=== PATIENT | male | born 1950 | race Caucasian/White ===

== ENCOUNTER → 2023-07-08 08:33 | Outpatient (REF) | payer OTHER, SELFPAY | LOC: HWRAD 08:33 | PROVIDERS: ATTENDING PHYSICIAN Nurse Practitioner Acute Care; FAMILY PHYSICIAN Internal Medicine | DX: Z95.828 Presence of other vascular implants and grafts (principal); I35.1 Nonrheumatic aortic (valve) insufficiency; I48.91 Unspecified atrial fibrillation | CPT/HCPCS: 71275; Q9967 ==

== ENCOUNTER → 2023-07-19 07:04 | Outpatient (REF) | payer OTHER, SELFPAY | LOC: HWRCS 07:04 | PROVIDERS: ATTENDING PHYSICIAN Nurse Practitioner Acute Care; FAMILY PHYSICIAN Internal Medicine | DX: I35.1 Nonrheumatic aortic (valve) insufficiency (principal); I48.91 Unspecified atrial fibrillation; Z95.828 Presence of other vascular implants and grafts | CPT/HCPCS: 93306 ==

== ENCOUNTER → 2024-05-26 13:54 | Outpatient (REF) | payer OTHER, SELFPAY | LOC: HWRCS 13:54 | PROVIDERS: ATTENDING PHYSICIAN Internal Medicine Cardiovascular Disease; FAMILY PHYSICIAN Internal Medicine | DX: I35.1 Nonrheumatic aortic (valve) insufficiency (principal) | CPT/HCPCS: 93306 ==

== ENCOUNTER 2025-01-08 18:51 | Observation (INO) | payer OTHER, SELFPAY ==
[2025-01-08 16:23] VITALS: BP 171/88
[2025-01-08 16:36] VITALS: BMI 29.3
[2025-01-08 16:36] LABS: Glucose - Point of Care 105 mg/dl (70-99)
[2025-01-08 16:56] VITALS: BP 143/78
--- NOTE | 2025-01-08 17:05 | ED.CVA ---
History of Present Illness
General
Chief Complaint: CVA/TIA Symptoms
Source: patient and family
Time Seen by Provider: 01/08/25 16:32
Onset of Stroke Symptoms
Onset of symptoms known: Yes
Date of onset of symptoms: 01/08/25
History of Present Illness
History of Present Illness:
Note:
CHIEF COMPLAINT(S)
Possible stroke.
HISTORY OF PRESENT ILLNESS
The patient, a male with a history of atrial fibrillation, presented with concerns of having a stroke. He reported an inability to recall things, citing an example where he forgot about retrieving his glasses. This episode followed a visit to the
dentist approximately 45 minutes prior, where he had received a local anesthetic on the right side. Post-procedure, the patient exhibited memory lapses, forgetting recent activities and locations. Family members reported he repeatedly failed to
remember statements he had just made, and he appeared disoriented. Upon arrival at the medical facility, the patient demonstrated improved lucidity but still exhibited memory difficulties and expressed concerns about the possibility of a stroke.
PAST MEDICAL AND SURGICAL HISTORY
History of atrial fibrillation and aortic surgery.
CHRONIC MEDICAL CONDITIONS SIGNIFICANTLY AFFECTING CARE
Atrial fibrillation.
MEDICATIONS
1. Carvedilol (Coreg)
2. A statin
3. Apixaban (Eliquis) - For atrial fibrillation.
PHYSICAL EXAM
General: Alert, no acute distress.
Skin: Warm, dry.
Head: Normocephalic, atraumatic.
Neck: Supple, trachea midline.
Eyes, ears, nose, mouth, and throat: Oral mucosa moist.
Cardiovascular: Normal peripheral perfusion, no edema.
Respiratory: Respirations are non-labored.
Gastrointestinal: Abdomen nondistended.
Back: Normal range of motion, normal alignment.
Musculoskeletal: Normal range of motion, normal strength.
Neurological: Alert and oriented to person, place, time, and situation. Speech is clear. Cranial nerves intact, equal bilateral. No pronator drift, normal strength in bilateral upper and lower extremities.
Psychiatric: Cooperative, appropriate mood and affect.
PLAN
1. Obtain a head CT scan to rule out a stroke.
2. Conduct lab work to assess for other possible causes.
3. Monitor for potential systemic effects of lidocaine from dental anesthesia.
4. Continuously evaluate neurological status.
DIFFERENTIAL DIAGNOSIS
The Differential Diagnosis includes, in no particular order and is not limited to:
1. Transient ischemic attack
2. Cerebrovascular accident (stroke)
3. Amnestic syndrome
4. Effects of dental anesthesia
5. Systemic lidocaine toxicity
6. Medication side effects
7. Atrial fibrillation-related embolism
8. Post-procedural delirium
9. Hypertensive encephalopathy
10. Transient global amnesia
Disposition:
SUMMARY OF ENCOUNTER
The patient was seen in the emergency department with concerns of experiencing a stroke. He exhibited symptoms suggestive of a possible stroke, but upon re-evaluation, his symptoms resolved completely. Neurology evaluated the patient at bedside
after imaging. Given that the symptoms had resolved and considering the patient was on apixaban (Eliquis), TNK (tenecteplase) was not indicated for management. Vital signs recorded included blood pressure of 143/78 mmHg and a heart rate of 62. His
blood glucose level was noted at 105 mg/dL. He was admitted for further evaluation and workup.
DISPOSITION
Admit
ASSESSMENT
Possible transient ischemic attack (TIA) or resolved stroke symptoms, requiring further evaluation and monitoring.
MANAGEMENT OF THE PATIENTS CARE WAS DISCUSSED WITH
Neurology team at bedside after imaging.
INDEPENDENT REVIEW OF LABS AND INTERPRETATION OF TESTS
My independent review of glucose is 105 mg/dL.
MEDICAL DECISION MAKING
- Number and Complexity of Problems Addressed: Chronic conditions affecting care include atrial fibrillation. Differential diagnosis considered includes transient ischemic attack, cerebrovascular accident (stroke), amnestic syndrome, effects of
dental anesthesia, systemic lidocaine toxicity, medication side effects, atrial fibrillation-related embolism, post-procedural delirium, hypertensive encephalopathy, transient global amnesia.
- Data:
Category 1: Reviewed blood glucose level.
Category 2: Neurology consulted and evaluated patient directly at bedside.
- Risk: The decision to admit for further evaluation was made due to the resolved symptoms of possible stroke, history of atrial fibrillation, and the need for further workup to rule out any life-threatening processes. Prescription medication
management was considered, but TNK was not administered due to contraindications (resolved symptoms and ongoing apixaban).
DIAGNOSIS
Transient ischemic attack (TIA) - ICD-10 Code G45.9. Atrial fibrillation - ICD-10 Code I48.91.
Past History
Past History
ED Past Medical History: Arrthythmia (Atrial fibrillation), CVA (Mild with Visual loss that resolved), HTN, Hypercholesterolemia and Other (Ascending aortic aneurysm)
ED Past Surgical History: Other (Ascending aortic aneurysm repair)
Social History
Tobacco: Former smoker
Alcohol: None
Personal:
Living: with family
Phy Exam
Physical Exam
Physical Exam:
.
Course
Orders/Labs/Results
Orders:
Orders
01/08/25 Dinner
Regular
At Your Request: Limited Participation
Does patient need a safe tray?: Yes
01/08/25 16:28
CT HEAD STROKE ALERT W/o Cont Urgent
Comment:
Reason For Exam: confusion
CT HEAD/NECK ANG STROKE ALERT Urgent
Comment:
Reason For Exam: confusion
01/08/25 16:32
CT BRAIN PERF STROKE ALERT Urgent
Comment:
Reason For Exam: speech changes
01/08/25 16:50
Electrocardiogram (*1) Stat
Reason for Study: Other
Other Reason for Exam: neuro symptoms
Cardiac Monitoring- Treatment ONCE
EKG- Treatment ONCE
01/08/25 16:58
Complete Blood Count/With Diff Urgent
Comprehensive Metabolic Panel Urgent
Magnesium Urgent
PT/INR [Prothrombin Time] Urgent
PTT Urgent
Troponin I Urgent
01/08/25 17:53
Admit/Transfer Patient As Directed
Co-Sign Provider:
Level of Care: Observation services
Assign to:: Telemetry
Physician / Group: nicol green
Diagnosis: amnesia concern for tia/va/seizure
Reason for Telemetry: CVA/TIA
Date to Stop Telemetry: 01/11/25
Time to Stop Telemetry: 11:00
Reason for Hospitalization: amnesia concern for tia/va/seizure
Code Status As Directed
Resuscitation Status: Full Code
01/08/25 17:54
PRN Pain Medication Management As Directed
May give lesser potent ordered pain med per pt: Yes
preference::
Protocol:: Medication orders for pain may be administered in a
manner that supports deferring to patient preference
when the pt is:
- Requesting an ordered lesser potent pain medication.
Least to most potent pain medications are defined
as: acetaminophen < NSAID < tramadol < opioids
(morphine, oxycodone, hydromorphone).
- Requesting a lesser dose of the same medication IF
ORDERED.
- Requesting a less intrusive route of administration
if both routes are prescribed by the provider (PO <
IV).
01/08/25 20:43
Acetaminophen [Tylenol] 650 mg PO Q4HPRN PRN
01/08/25 20:43
VTE Contraindication Routine
VTE Mechanical Device Contraindication: Medical Contraindication
Pharmocologic Contraindication: Medical Contraindication
Comment: Patient on Eliquis
EEG Routine Routine
Reason for Exam: memory impairment
Activity As Directed
Activity Level: As Tolerated
Neurological Checks As Directed
Frequency: q4h
Vital Signs As Directed
Frequency: Per unit guidelines
01/09/25 06:00
Cardiovascular Evaluation IN AM
Complete Blood Count/With Diff IN AM
Comprehensive Metabolic Panel IN AM
Hgba1c [Glycohemoglobin (HgbA1c)] IN AM
01/11/25 11:00
DC Protocol for Telemetry ONCE
Abnormal Lab Results
01/08/25 01/08/25
16:34 16:58
Absolute Neuts (auto) 6.9 H 10^3/uL
(1.4-6.5)
Absolute Monos (auto) 0.7 H 10^3/uL
(0.1-0.6)
Lymphocytes % 20.3 L %
(20.5-51.1)
BUN 22 H mg/dl
(9-20)
Glucose 109 H mg/dl
(70-99)
POC Glucose 105 H mg/dl
(70-99)
01/08/25 16:58
01/08/25 16:58
Vital Signs
Initial and Last Documented VS:
Initial Vital Signs
Temp Pulse Resp BP Pulse Ox
98.4 F 65 16 171/88 98
01/08/25 16:23 01/08/25 16:23 01/08/25 16:23 01/08/25 16:23 01/08/25 16:23
Last Documented Vital Signs
Temp Pulse Resp BP Pulse Ox
98.6 F 62 14 143/78 97
01/08/25 16:56 01/08/25 16:56 01/08/25 16:56 01/08/25 16:56 01/08/25 17:06
*Pulse Oximetry
SaO2: 97
Oxygen Mode of Delivery: Room air
Patient hypoxic: no
*Critical Care Note
Total Time (30-74mins, 75-104mins- exclusive of procedures): 35 minutes
ED Attending Note
-
Portions of this chart may have been created with voice recognition software.� Occasional wrong word or��sound alike� substitutions may have occurred due to the inherent limitations of voice recognition software.
Discharge Plan
Departure
Patient Disposition: Admit
Date of Disposition: 01/08/25
Time of Disposition: 17:05
Admit to: Telemetry
Presentation/result/management discussed w/ accepting MD/DO: Hospitalist
Discharge Problem:
TIA (transient ischemic attack)
Interventions
Interventions:
*Risk Screen - Suicide Last Done: 01/08/25 16:56
*General Assessment Last Done: 01/08/25 16:56
*Neglect/Abuse Screening Last Done: 01/08/25 16:56
*ED- Fall Risk Assessment Last Done: 01/08/25 16:56
*ED COVID-19 Vaccine History Last Done: 01/08/25 16:56
*Nursing Disposition Last Done: 01/08/25 20:39
ED- Pulmonary Assessment Last Done: 01/08/25 16:56
ED- Neurological Assessment Last Done: 01/08/25 16:56
ED- Cardiac Assessment Last Done: 01/08/25 16:56
ED Swallowing Screen Last Done: 01/08/25 16:56
Discharge Date and Time
Discharge Date/Time: 01/08/25 20:39
[2025-01-08 17:13] LABS: Hematocrit 44.3 % (39.0-52.0); Hemoglobin 14.6 g/dL (13.0-18.0); Mean Corp Hgb Conc. 33.0 g/dL (33.0-37.0); Mean Corpuscular Volume 86.9 fL (80.0-94.0); Nucleated Red Blood Cells % 0 % (-); Platelet Count 246 10^3/uL (130-400); Red Cell Dist. Width 13.3 % (11.5-14.5)
--- NOTE | 2025-01-08 17:15 | HPS.HSE ---
Addendum entered and electronically signed by Haile Joiner MD 01/08/25 20:29:
This is an addendum to H&P written by Grace Esquivel on 01/08/2025. �Patient seen and examined independent with EMPLOYMENT ADVISOR.
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 �He was unable to
recall things. �This occurred after dental visit when he received local anesthetic on the right side. �He did have some atypical speech. �He appeared disoriented and felt remember statements. �He had some tingling in his mouth but he did have
anesthesia. �No focal neurological symptoms, headache or blurry vision or dizziness. �Symptoms currently resolved.
Vital signs normal.
Labs unremarkable.
CT head showed no evidence of acute intracranial abnormality. �CTA head and neck shows no evidence of high-grade stenosis or large vessel occlusion.
Possible TIA versus CVA vs seizure. �Check MRI brain.� Check EEG. Continue Eliquis. �Neurology consulted.
Original Note:
Family Physician
-
Family Physician:
Chief Complaint
-
Acute memory impairment
History of Present Illness
74-year-old male who reportedly went to his dentist today at 2 PM had deep cleaning/scaling on the right upper and right lower part of his mouth. He did receive Novocain without any difficulty. He had the same procedure last week. Upon returning
home he was home for about 45 minutes when his daughter was attempting to show him pictures of her grandson on her phone. He walked into the kitchen came out with his glasses however he was holding them in his hand looking puzzled per his daughter.
He was asking her why does he have the glasses she reminded him that he went in there to get them to look at his grandson she then started asking him questions of where he was earlier he could not recall his age he cannot recall he went to the
dentist his occupation she reports also on the drive here he kept saying repetitive questions that really did not make any sense. She believes he might of had a little bit of a facial droop however she cannot be definite due to his Novocain
anesthesia on the upper right and lower part of his mouth. He is currently oriented x 3 with no focal deficits. He did have history of TIA with visual field deficit a few weeks after ascending aortic aneurysm repair years ago. He states he
follows with Dr. Joseph cortes from [place].
He has past medical history A-fib Dx 2021, ascending aortic aneurysm repair, 2-3 weeks CVA with prior visual loss right parietal August 2021, HTN, HLD, former smoker
Medical History
Past Medical History
Past Medical History: Reports Other
Additional Past Medical History:
A-fib Dx 2021
ascending aortic aneurysm repair August 2021 [facility]
2-3 weeks after aneurysm repair CVA with prior visual loss right parietal September 2021
HTN
HLD
former smoker
Past Surgical History: Reports Other
Additional Past Surgical History:
ascending aortic aneurysm repair August 2021 [facility]
Tonsillectomy
Social History
Tobacco: Former Smoker
Alcohol: None
Drug: None
Personal:
Living: With Family
Family History
Family History: Not pertinent
Allergies / Home Medications
Allergies reflects when Allergies were last updated in [facility].
Home Medications with original date entered in [facility]
Allergy/Medication List:
Allergies
Allergy/AdvReac Type Severity Reaction Status Date / Time
No Known Allergies Allergy Verified 09/14/21 16:38
Home Medications
apixaban 5 mg tablet (Eliquis) 5 mg PO BID #60 tabs 09/16/21
atorvastatin 40 mg tablet (Lipitor) 40 mg PO HS #30 tabs 09/16/21
famotidine 20 mg tablet (Pepcid) 20 mg PO HS 01/08/25
glucosamine sulf dipot chlr,msm,chond 550 mg-C 30 mg-cruz 1 mg capsule (Glucosamine Chondroitin) 1 cap PO DAILY 01/08/25
ibuprofen 200 mg tablet (Advil) 600 mg PO BID 01/08/25
metoprolol succinate 25 mg tablet,extended release 24 hr 25 mg PO BID Blood pressure 01/08/25
sildenafil 50 mg tablet 50 - 100 mg PO DAILYPRN PRN ed 01/08/25
turmeric 400 mg capsule 400 mg PO DAILY 01/08/25
Review of Systems
-
History Source: Patient and Family (Daughter and at bedside)
A 12 point ROS was completed and negative except as noted: Yes
Constitutional: Denies Fever or Chills
EENT: Reports Other (Memory impairment of earlier today's events); Denies Sore Throat or Runny Nose
Respiratory: Denies Cough or Trouble Breathing
Cardiac: Denies Chest Pain, Diaphoresis or Palpitations
Abdomen/GI: Denies Abdominal Pain, Nausea, Vomiting, Diarrhea, Constipated or Bloody Stools
: Denies Dysuria, Frequency, Flank Pain, Incontinence or Difficulty Voiding
Musculoskeletal: Denies Joint Pain or Edema
Skin: Denies Itching or Rash
Neurological: Denies Dizzy
Endocrine: Reports No Symptoms
Hematologic/Lymphatic: Reports No Symptoms
Psych: Reports Calm
Physical Exam
Vital Signs
Vital Signs
Temp Pulse Resp BP Pulse Ox
98.6 F 62 14 143/78 97
01/08/25 16:56 01/08/25 16:56 01/08/25 16:56 01/08/25 16:56 01/08/25 17:06
Physical Exam
General: Comfortable and Conversant; No Pain, Fever or Chills
HEENT: NormoCephalic, Anicteric, Moist mucous membranes, PERRLA, [place] Conjunctivae, No Ptosis and Neck Nontender
Respiratory: Clear; No Wheezes, Rales or Rhonchi
Cardiac: S1/S2 and Regular Rhythm; No Murmur, Rub, Gallop or Peripheral Edema
Breast: Deferred by me
GI: Soft, Non Distended, Normal Bowel Sounds and No Hepatosplenomegaly
Rectal: Deferred by Provider
Genito-urinary: Deferred by me
Musculoskeletal: No Clubbing, No Cyanosis and No Edema
Skin: Warm and Dry; No Rash
Neuro: AO x 3, No Motor Deficits, Nonfocal/grossly intact, Cranial Nerves Intact and No Sensory Deficits; No Slurred Speech, Facial Droop, Tremors or Sedated
Laboratory Results
-
01/08/25 16:58
Data Reviewed
-
CT Scan: Report Reviewed by me
Lab Data: Labs Reviewed by me
Impression/Plan
-
Impression/plan:
Observation telemetry
#Amnesia concern for seizure
#History of right parietal CVA 09/2021
- Check lipid profile, HgbA1c
- Patient took Eliquis 5 mg this a.m. 01/08/2025 for A-fib
-Continue Eliquis 5 mg twice daily, Lipitor 40 mg at bedtime
- Consult neurology-discussed with Dr. Santana
- EEG
2D echo 05/26/2024: EF 60% normal biventricular size and systolic function without regional wall abnormality, mild to moderate MR, proximal aortic measurement 4.[address] brain perfusion:
Distribution of elevation of Tmax is within both temporal lobes, right greater than left. Extension to the temporal occipital junction, greater on the left compared to the right.
There is also a focal area in the inferior and anterior right frontal lobe. This distribution would be atypical for ischemic stroke.
#Paroxysmal A-fib Dx 2021
- Continue metoprolol succinate 25 mg daily
-Continue Eliquis 5 mg twice daily
#Abdominal aortic aneurysm status post repair August 2021 at [facility]
#HTN
BP 143/78
Continue metoprolol succinate 25 mg daily
DVT prophylaxis
cont eliquis
Full code
[2025-01-08 17:21] LABS: INR 1.08; PT 14.3 Sec (11.4-14.6)
[2025-01-08 17:22] LABS: APTT 33.8 Sec (23.4-35.0)
[2025-01-08 17:25] LABS: ALT (SGPT) 21 U/L (0-50); AST (SGOT) 25 U/L (17-59); Albumin 4.5 g/dl (3.5-5.0); Alkaline Phosphatase 96 U/L (38-126); Blood Urea Nitrogen 22 mg/dl (9-20); Calcium 9.1 mg/dl (8.4-10.2); Carbon Dioxide 26 mmol/L (22-30); Chloride 107 mmol/L (98-107); Estimated Creatinine Clearance 73 ml/min; Glucose 109 mg/dl (70-99); Magnesium 2.0 mg/dl (1.6-2.3); Potassium 4.4 mmol/L (3.5-5.1); Sodium 139 mmol/L (135-145); Total Protein 7.0 g/dl (6.3-8.2); eGFR > 60.00
[2025-01-08 17:35] LABS: Troponin I 0.014 ng/ml
[2025-01-08 20:30] VITALS: BP 142/71; BMI 28.5
[2025-01-08] MEDS: TOPROL XL 25 MG PO (22:27)
[2025-01-08] MEDS: ELIQUIS 5 MG PO (22:28)
[2025-01-08] MEDS: LIPITOR 40 MG PO (22:28)
[2025-01-08] MEDS: PEPCID 20 MG PO (22:28)
[2025-01-08 23:16] VITALS: BP 118/62
[2025-01-09 02:58] VITALS: BP 141/69
[2025-01-09 07:00] VITALS: BP 125/70
[2025-01-09 07:26] LABS: Hematocrit 41.4 % (39.0-52.0); Hemoglobin 13.9 g/dL (13.0-18.0); Mean Corp Hgb Conc. 33.6 g/dL (33.0-37.0); Mean Corpuscular Volume 87.7 fL (80.0-94.0); Nucleated Red Blood Cells % 0 % (-); Platelet Count 235 10^3/uL (130-400); Red Cell Dist. Width 13.4 % (11.5-14.5)
[2025-01-09 07:39] LABS: ALT (SGPT) 19 U/L (0-50); AST (SGOT) 24 U/L (17-59); Albumin 3.9 g/dl (3.5-5.0); Alkaline Phosphatase 92 U/L (38-126); Blood Urea Nitrogen 25 mg/dl (9-20); Calcium 9.3 mg/dl (8.4-10.2); Carbon Dioxide 27 mmol/L (22-30); Chloride 110 mmol/L (98-107); Estimated Creatinine Clearance 81 ml/min; Glucose 87 mg/dl (70-99); HDL Cholesterol 48 mg/dl; LDL Cholesterol, Calculated 71 mg/dl; Potassium 4.8 mmol/L (3.5-5.1); Sodium 141 mmol/L (135-145); Total Protein 6.1 g/dl (6.3-8.2); Very Low Density Lipoprotein 15 mg/dl (0-30); eGFR > 60.00
[2025-01-09] MEDS: TOPROL XL 25 MG PO (08:42)
[2025-01-09] MEDS: ELIQUIS 5 MG PO (08:43)
[2025-01-09 10:33] LABS: Glycohemoglobin (HgbA1c) 5.4 % (4.0-5.6)
--- NOTE | 2025-01-09 10:56 | CM ---
Reviewed chart.Met with pt at bedside. Shea given and form placed on chart. Lives in 3-story home with , daughter, son-in-law- [id number] and grandson. 2 steps at entrance to house. Hx of HH post open heart surgery with [facility]; PT.
No hx of SNF or DME but has SPC availability in the home. Planned MRI for today. confirmed PCP, Rx, insurance and drug coverage.
Plan: Home without needs.
[2025-01-09 11:08] VITALS: BMI 28.5
[2025-01-09 11:18] VITALS: BP 119/61
--- NOTE | 2025-01-09 11:55 | W.PN.HOSP.TC ---
Today's Communication/Plan
-
MRI
EEG
Neuro eval
Lyme testing at patient request
Assessment / Plan
Assessment / Plan
Assessment:
Amnesia episode
Hx of R parietal CVA 2021
- CT head: negative
- CTA: no hemodynamically significant stenosis
- check MRI brain
- check EEG
- Neuro consulted
- continue Eliquis/Lipitor
Parox A. Fib
- continue BB/Eliquis
AAA s/p repair 2021 ([id number])
Essential HTN
- continue BB
DVT ppx: Eliquis
Code: Full
Anticipated Discharge: 24 - 48 hours
Subjective/Interval History
-
Date of Service: January 09, 2025
resting comfortably, no complaints at present
Objective Data
-
Labs:
Laboratory Results
01/09/25
06:17
WBC 9.0
Hgb 13.9
Hct 41.4
Plt Count 235
Sodium 141
Potassium 4.8
Chloride 110 H
Carbon Dioxide 27
BUN 25 H
Creatinine 0.9
Glucose 87
Calcium 9.3
Total Bilirubin 0.7
AST 24
ALT 19
Alkaline Phosphatase 92
Vital Signs:
Vital Signs
Temp Pulse Resp BP Pulse Ox
98.2 F 54 16 119/61 96
01/09/25 11:18 01/09/25 11:18 01/09/25 11:18 01/09/25 11:18 01/09/25 11:18
I&O
01/08/25 01/09/25 01/10/25
06:59 06:59 06:59
Intake Total 480 / 480
Balance 480 / 480
Physical Exam
-
General: No Apparent Distress
HEENT: Normocephalic and Atraumatic
Respiratory: Negative Wheezes
Cardiac: Regular Rhythm and S1/S2
GI: Soft
Neuro: AO x 3
Psych: Calm
Data Reviewed
-
Total Time Spent with Patient (in minutes): 42
Labs: Labs Reviewed by me
--- NOTE | 2025-01-09 12:35 | EEG.RPT ---
Electroencephalogram Report
Recording
Date of EE01/09/25
Type of EEG: Routine
Length of EEG recordin mins
Done with Video Recording: Yes
Patient Status: Inpatient
Recording Conditions: Awake
Hyperventilation Performed: Yes
Photic Stimulation Performed: Yes
Report
Clinical Background:�74 year old man with possible seizures, events resembling amaurosis fugax every other week x years
Introduction: A routine bedside EEG was done using [employer] 10-20 electrode placement protocol.
Background: In the most alert state, the PDR is 9-10 Hz in frequency with normal amplitude. There is spontaneous variability and reactivity.�
Sleep: No sleep is seen.�
Focal/epileptiform: There were no focal or epileptiform discharges. No clinical or electrographic seizures occurred during this recording.
Hyperventilation: resulted in symmetric slowing.
Photic stimulation: resulted in normal driving response. There was no photo myogenic or photoparoxysmal response.�
Impression: Normal EEG
--- NOTE | 2025-01-09 13:11 | W.DS.TRANS ---
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
-
Discharge Instructions:
Sleep Apnea Risk Low
Discharge Diagnosis/Procedures TIA
Diet Regular
Activity As tolerated
Instructions:
Stand-Alone Forms:
Changes to Home Medications: No
Discharge Medications:
DC Medications w/original date entered in [facility]
apixaban 5 mg tablet (Eliquis) 5 mg PO BID #60 tabs 09/16/21
atorvastatin 40 mg tablet (Lipitor) 40 mg PO HS #30 tabs 09/16/21
famotidine 20 mg tablet (Pepcid) 20 mg PO HS Gastrointestinal Issue 01/08/25
glucosamine sulf dipot chlr,msm,chond 550 mg-C 30 mg-cruz 1 mg capsule (Glucosamine Chondroitin) 1 cap PO DAILY Supplement 01/08/25
ibuprofen 200 mg tablet (Advil) 600 mg PO BID INFLAMMATION/PAIN 01/08/25
metoprolol succinate 25 mg tablet,extended release 24 hr 25 mg PO BID Blood pressure 01/08/25
sildenafil 50 mg tablet 50 - 100 mg PO DAILYPRN PRN ed 01/08/25
turmeric 400 mg capsule 400 mg PO DAILY Supplement 01/08/25
Home Medication Changes
Pending Results: No
Total time spent discharging patient (in min): 41
--- NOTE | 2025-01-09 16:47 | CON.NEURO ---
Neuro Assessment/Plan
Assessment
CTA head/neck imgs and rept rev'd mild/moderate stenosis b/l carotids
CT perfusion imgs rev'd core 0 cc, penumbra 33cc multifocal -
74 year old man with paroxysmal event.
I suspect this event may have been a TIA given perfusion scan showing multi focal ischemic penumbra
as his symptoms were resolved, and he was on Eliquis, he was not a TNK candidate.
stroke secondary prevention continue Eliquis and Lipitor
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
amaurosis-like episodes too frequent to be TIA; I do not believe 39% and 44% carotid stenosis is the cause of this. believe that they are most likely either simple partial seizure or migraine
checked EEG which was normal, and he did not want Rx for this.
Consultation
Order
Date of Consultation: 01/08/25
Requesting Provider:
Reason for Consult:
Subjective/Objective
Subjective Data
Date of Service: January 08, 2025
Seen yesterday during stroke alert, late note
from ED notes:
The patient, a male with a history of atrial fibrillation, presented with concerns of having a stroke. He reported an inability to recall things, citing an example where he forgot about retrieving his glasses. This episode followed a visit to the
dentist approximately 45 minutes prior, where he had received a local anesthetic on the right side. Post-procedure, the patient exhibited memory lapses, forgetting recent activities and locations. Family members reported he repeatedly failed to
remember statements he had just made, and he appeared disoriented. Upon arrival at the medical facility, the patient demonstrated improved lucidity but still exhibited memory difficulties and expressed concerns about the possibility of a stroke.
I saw him in the ED immediately after his CT perfusion scan showed a 33 cc penumbra multifocal as read by [facility]. CTA was negative. by the time he got back to his room, all of his symptoms were resolved.
he reported symptoms resembling amaurosis fugax approx every other week, usually right eye but could be either, lasting several minutes for a few years.
Objective Data
Vital Signs
Temp Pulse Resp BP Pulse Ox
36.8 C 54 16 119/61 96
01/09/25 11:18 01/09/25 11:18 01/09/25 11:18 01/09/25 11:18 01/09/25 11:18
Lab Results
01/09/25 06:17
01/09/25 06:17
PT 14.3 Sec (11.4-14.6) 01/08/25 16:58
INR 1.08 01/08/25 16:58
APTT 33.8 Sec (23.4-35.0) 01/08/25 16:58
Sodium 141 mmol/L (135-145) 01/09/25 06:17
Potassium 4.8 mmol/L (3.5-5.1) 01/09/25 06:17
BUN 25 mg/dl (9-20) H 01/09/25 06:17
Glucose 87 mg/dl (70-99) 01/09/25 06:17
Calcium 9.3 mg/dl (8.4-10.2) 01/09/25 06:17
LDL Cholesterol, Calc 71 mg/dl 01/09/25 06:17
Patient Allergies
No Known Allergies Allergy (Verified 09/14/21 16:38)
Physical Exam
-
Exam yesterday NIHSS was 0
Medications
-
Home Medications
�Medication �Instructions �Recorded
apixaban 5 mg tablet (Eliquis) 5 mg PO BID #60 tabs 09/16/21
atorvastatin 40 mg tablet (Lipitor) 40 mg PO HS #30 tabs 09/16/21
famotidine 20 mg tablet (Pepcid) 20 mg PO HS Gastrointestinal Issue 01/08/25
glucosamine sulf dipot 1 cap PO DAILY Supplement 01/08/25
chlr,msm,chond 550 mg-C 30 mg-cruz
1 mg capsule (Glucosamine
Chondroitin)
ibuprofen 200 mg tablet (Advil) 600 mg PO BID INFLAMMATION/PAIN 01/08/25
metoprolol succinate 25 mg 25 mg PO BID Blood pressure 01/08/25
tablet,extended release 24 hr
sildenafil 50 mg tablet 50 - 100 mg PO DAILYPRN PRN ed 01/08/25
turmeric 400 mg capsule 400 mg PO DAILY Supplement 01/08/25
[2025-01-11 16:43] LABS: Lyme Antibody Screen, EIA Negative (Negative)
== END 2025-01-09 14:21 | disposition home or self-care (01) ==
LOC: 4 WEST ACU 18:51
PROVIDERS: Clinical Nurse Specialist Family Health; ADMITTING PHYSICIAN Hospitalist; ATTENDING PHYSICIAN Internal Medicine; CONSULT PHYSICIAN Psychiatry & Neurology Clinical Neurophysiology; EMERGENCY PHYSICIAN Emergency Medicine; FAMILY PHYSICIAN Internal Medicine
DX: G45.9 Transient cerebral ischemic attack, unspecified (principal); R41.3 Other amnesia; I48.0 Paroxysmal atrial fibrillation; I10 Essential (primary) hypertension; Z79.01 Long term (current) use of anticoagulants; Z79.899 Other long term (current) drug therapy; Z87.891 Personal history of nicotine dependence
CPT/HCPCS: 0042T; 70450; 70496; 70498; 80053; 80061; 82962; 83036; 83735; 84484; 85025; 85610; 85730; 86618; 93005; 95816; 99285; G0378; Q9967